=== PATIENT | male | born 1995 | race American Indian/Alaskan Native ===

== ENCOUNTER 2016-08-23 23:46 | Emergency (ER) | payer MEDICAID ==
[2016-08-24 00:11] VITALS: BP 113/76
== END 2016-08-24 04:25 | disposition left against medical advice (07) ==
LOC: ED 23:46
DX: H92.02 Otalgia, left ear (principal); Z53.21 Procedure and treatment not carried out due to patient leaving prior to being seen by health care provider

== ENCOUNTER 2016-08-24 06:55 | Emergency (ER) | payer MEDICAID ==
[2016-08-24 07:37] VITALS: BP 127/78
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
== END 2016-08-24 10:10 | disposition home or self-care (01) ==
LOC: ED 06:55
DX: H92.02 Otalgia, left ear (principal)
CPT/HCPCS: 99283

== ENCOUNTER 2018-02-05 18:37 | Emergency (ER) | payer MEDICAID, OTHER ==
[2018-02-05 19:24] LABS: Hematocrit 44.5 % (35.5-45.6); Mean Corpuscular HGB Conc 34 % (32-34); Mean Corpuscular Hemoglobin 28 pg (28-32); Mean Corpuscular Volume 84 fl (84-94); Platelet Count 218 K/mm3 (140-440); Red Cell Distribution Width 14.3 % (13.2-15.2)
[2018-02-05 19:36] LABS: BUN/Creatinine Ratio 13; Blood Urea Nitrogen 14 mg/dL (9-20); Calcium 9.3 mg/dL (8.4-10.2); Hemolysis Index 6
[2018-02-05 19:56] LABS: Bilirubin,Urine NEG (Negative); Blood,Urine NEG (Negative); Color,Urine Yellow (Yellow); Mucus,Urine FEW /HPF; Protein,Urine <15 mg/dL mg/dL (Negative); Urobilinogen,Urine < 2.0 mg/dL (<2.0); WBC,Urine < 1.0 /HPF (0.0-6.0)
[2018-02-05 19:57] LABS: Amphetamine Screen,Urine PRESUMPTIVE NEGATIVE; Benzodiazepines Screen,Urine PRESUMPTIVE NEGATIVE; Cannabinoid Screen,Urine PRESUMPTIVE NEGATIVE; Cocaine Screen,Urine PRESUMPTIVE NEGATIVE; Methadone Screen,Urine PRESUMPTIVE NEGATIVE; Opiate Screen,Urine PRESUMPTIVE NEGATIVE
[2018-02-05] MEDS ORDERED: KEPPRA PO ONE (20:24)
--- NOTE | 2018-02-05 20:41 | Emergency Department Report ---
HPI - General Chief Complaint: Seizure Time Seen by Provider: 02/05/18 20:17 - HPI HPI: This is a 23-year-old -[place] male who presents to the emergency department with a complaint of a possible seizure. The patient had some witnessed convulsions with his eyes rolling back in his head that was seen by his girlfriend at about 4:40 PM. He started talking but his voice was slurred at that time. They say his eyes were dilated and he was staring off in some type of a stupor for about 15 minutes. He was brought in by the family for evaluation [facility] he said he had a significant headache but that has since resolved completely. He has a history of one previous seizure that occurred as a child and he also has a history of some type of a significant brain injury as a child as well. He denies any tobacco or any illicit drug use or abuse. ED Past Medical Hx - Past Medical History Hx Seizures: Yes (x1 young child) Additional medical history: CONCUSSION-21yr old - Social History Smoking Status: Never Smoker Substance Use Type: None - Medications Home Medications: Home Medications Medication Instructions Recorded Confirmed Last Taken Type levETIRAcetam [Keppra] 500 mg PO BID #60 tablet 02/05/18 Unknown Rx ED Review of Systems ROS: Stated complaint: HEADACHE/POSSIBLE SEIZURE Other details as noted in HPI Comment: All other systems reviewed and negative Constitutional: denies: chills, fever Eyes: denies: eye pain, eye discharge, vision change ENT: denies: ear pain, throat pain Respiratory: denies: cough, shortness of breath, wheezing Cardiovascular: denies: chest pain, palpitations Gastrointestinal: denies: abdominal pain, nausea, diarrhea Genitourinary: denies: urgency, dysuria Musculoskeletal: denies: back pain, joint swelling, arthralgia Skin: denies: rash, lesions Neurological: headache, other (seizure) Physical Exam - Physical Exam Vital Signs: Vital Signs 02/05/18 18:52 Temperature 98.5 F Pulse Rate 85 Respiratory 18 Rate Blood Pressure 142/73 O2 Sat by Pulse 98 Oximetry Physical Exam: GENERAL: Well nourished. Well developed. HENT: Normocephalic. Atraumatic. Patient has moist mucous membranes. EYES: Extraocular motions are intact. Pupils are equal and reactive bilaterally. Mild fatigable horizontal nystagmus. NECK: Supple. Trachea is midline. CHEST/LUNGS: Clear to auscultation. There is no respiratory distress noted. HEART/CARDIOVASCULAR: Regular. There is moderate tachycardia. There is no murmur. ABDOMEN: Abdomen is soft, nontender. Patient has normal bowel sounds. There is no abdominal distention. SKIN: Skin is warm and dry. NEURO: Patient is awake, alert and oriented. The patient is cooperative. No focal, motor or sensory deficits. Cranial nerves II through XII grossly intact. No pronator drift. No dysmetria. MUSCULOSKELETAL: There is no tenderness or deformity. No restriction to range of motion. There is no evidence of acute injury. ED Course Vital Signs 02/05/18 18:52 Temperature 98.5 F Pulse Rate 85 Respiratory 18 Rate Blood Pressure 142/73 O2 Sat by Pulse 98 Oximetry ED Medical Decision Making - Lab Data Result diagrams: 02/05/18 19:08 02/05/18 19:08 - EKG Data -: EKG Interpreted by Vt EKG shows normal: sinus rhythm, axis, intervals, QRS complexes, ST-T waves Rate: bradycardia (59 bpm) - EKG Data When compared to previous EKG there are: previous EKG unavailable Interpretation: other - Medical Decision Making This patient presents after having a seizure that was witnessed prior to presentation. There description does sound very consistent with a seizure. Since being in the emergency department patient is awake, alert and appropriate. No focal, motor or sensory deficits and his cranial nerves are intact. EKG is normal without ST elevation MD, ischemia or dysrhythmia. Labs have been mostly unremarkable as well and do not show any etiology of symptoms. I decided to start the patient on antiepileptic medication secondary to his history of a previous alleged moderate to severe head injury. However the patient has been given a referral for neurology and instructed to follow-up in the next few days so he can have further evaluation of this seizure-like activity and whether or not to continue the antiepileptic medications. I discussed the labs, EKG results and outpatient follow-up plan with both patient and his family and they understand and agree. All questions have been answered. - Differential Diagnosis epilepsy, dysrhythmia, hypoglycemia, electrolyte abnormalities Critical Care Time: No Critical care attestation.: If time is entered above; I have spent that time in minutes in the direct care of this critically ill patient, excluding procedure time. ED Disposition Clinical Impression: Seizure Disposition: DC-01 TO HOME OR SELFCARE Is pt being admited?: No Condition: Stable Instructions: New-Onset Seizure in Adults (ED) Additional Instructions: Please follow up with a primary care physician and a neurologist. I'm giving him a referral for a local neurologist, Dr. Ham and, to follow up regarding her seizure-like activity. I'm starting you on a antiseizure medication called Keppra. Return to the emergency department with any recurrent seizures, worsening of your symptoms, or with any acute distress. Prescriptions: levETIRAcetam [Keppra] 500 mg PO BID #60 tablet Referrals: PRIMARY CARE, [Primary Care Provider] - 2-3 Days BLAIRE SUTHERLAND MD [Staff Physician] - 2-3 Days Time of Disposition: 21:35
[2018-02-05 22:07] VITALS: BP 137/78
== END 2018-02-05 22:06 | disposition home or self-care (01) ==
LOC: ED 18:37
DX: R56.9 Unspecified convulsions (principal); R47.81 Slurred speech
CPT/HCPCS: 36415; 80048; 80307; 81001; 85027; 93005; 93010

== ENCOUNTER 2019-12-31 05:57 | Emergency (ER) | payer BC ==
[2019-12-31 06:30] VITALS: BP 130/79
--- NOTE | 2019-12-31 08:23 | Emergency Department Report ---
ED General Adult HPI - General Chief complaint: Extremity Problem,Nontraumatic Stated complaint: RT ARM PAIN/NOT ABLE TO BEND Time Seen by Provider: 12/31/19 08:22 Source: patient Mode of arrival: Ambulatory Limitations: No Limitations - History of Present Illness Initial comments: 24-year-old -[place] male patient presents with complaints of right arm pain and swelling with decreased range of motion x yesterday. Patient states his symptoms began shortly after donating plasma from the right arm. He rates his pain as a 8/10 in severity and states it worsens with trying to extend the arm. He denies any fever/chills/sweats or past medical history. Patient also denies any chest pain, shortness of breath, cough, history of DVT/PE, recent long travel, IV drug use, or numbness/tingling/weakness in his arm or hand. -: Sudden Consistency: constant Worsens with: movement - Related Data Previous Rx's Medication Instructions Recorded Last Taken Type levETIRAcetam [Keppra] 500 mg PO BID #60 tablet 02/05/18 Unknown Rx Ibuprofen [Motrin 800 MG tab] 800 mg PO Q8HR PRN #21 tablet 12/31/19 Unknown Rx Allergies Allergy/AdvReac Type Severity Reaction Status Date / Time No Known Allergies Allergy Verified 08/24/16 00:07 ED Review of Systems ROS: Stated complaint: RT ARM PAIN/NOT ABLE TO BEND Other details as noted in HPI Constitutional: denies: chills, diaphoresis, fever, malaise, weakness Respiratory: denies: cough, SOB with exertion Cardiovascular: denies: chest pain Skin: denies: rash, lesions, change in color Neurological: denies: numbness, paresthesias Hematological/Lymphatic: denies: easy bleeding, easy bruising, swollen glands ED Past Medical Hx - Past Medical History Hx Seizures: Yes (x1 young child) Additional medical history: CONCUSSION-?13/14 yrs old - Surgical History Past Surgical History?: No - Social History Smoking Status: Never Smoker Substance Use Type: None - Medications Home Medications: Home Medications Medication Instructions Recorded Confirmed Last Taken Type levETIRAcetam [Keppra] 500 mg PO BID #60 tablet 02/05/18 Unknown Rx Ibuprofen [Motrin 800 MG tab] 800 mg PO Q8HR PRN #21 tablet 12/31/19 Unknown Rx ED Physical Exam - General Limitations: No Limitations General appearance: alert, in no apparent distress - Head Head exam: Present: atraumatic, normocephalic - Eye Eye exam: Present: normal appearance. Absent: scleral icterus - ENT ENT exam: Present: mucous membranes moist - Respiratory Respiratory exam: Present: normal lung sounds bilaterally. Absent: respiratory distress - Cardiovascular Cardiovascular Exam: Present: regular rate, normal rhythm. Absent: systolic murmur, diastolic murmur, rubs, gallop - Expanded Upper Extremity Exam Right Forearm Wrist exam: Present: full ROM (Decreased extension secondary to pain), tenderness (Tenderness noted over the proximal anterior portion of the right forearm), swelling (Mild swelling without erythema or skin changes noted), other (Normal radial pulse noted, normal sensation and range of motion of the wrist and hand noted). Absent: deformity, erythema - Neurological Exam Neurological exam: Present: alert, oriented X3 - Psychiatric Psychiatric exam: Present: normal affect, normal mood - Skin Skin exam: Present: warm, dry, intact, normal color. Absent: rash ED Course Vital Signs 12/31/19 12/31/19 06:00 06:02 Temperature 97.9 F 97.9 F Pulse Rate 72 72 Respiratory 18 18 Rate Blood Pressure 136/79 130/79 O2 Sat by Pulse 98 98 Oximetry ED Medical Decision Making - Lab Data Lab Results 12/31/19 Range/Units 10:38 WBC 5.5 (4.5-11.0) K/mm3 RBC 5.54 H (3.65-5.03) M/mm3 Hgb 15.5 H (11.8-15.2) gm/dl Hct 45.7 H (35.5-45.6) % MCV 83 L (84-94) fl MCH 28 (28-32) pg MCHC 34 (32-34) % RDW 14.7 (13.2-15.2) % Plt Count 261 (140-440) K/mm3 Lymph % (Auto) 46.1 H (13.4-35.0) % [place] % (Auto) 9.6 H (0.0-7.3) % Eos % (Auto) 3.5 (0.0-4.3) % Baso % (Auto) 1.2 (0.0-1.8) % Lymph # 2.6 (1.2-5.4) K/mm3 [place] # 0.5 (0.0-0.8) K/mm3 Eos # 0.2 (0.0-0.4) K/mm3 Baso # 0.1 (0.0-0.1) K/mm3 Seg Neutrophils % 39.6 L (40.0-70.0) % Seg Neutrophils # 2.2 (1.8-7.7) K/mm3 - Radiology Data Radiology results: report reviewed DUPLEX DOPPLER UPPER EXTREMITY VENOUS, RIGHT INDICATION / CLINICAL INFORMATION: swelling/pain after plasma donation. TECHNIQUE: Duplex doppler imaging was performed through the veins of the right upper extremity using venous compression and other maneuvers. COMPARISON: None available. FINDINGS: RIGHT INTERNAL JUGULAR VEIN: Negative. RIGHT SUBCLAVIAN VEIN: Negative. RIGHT AXILLARY VEIN: Negative. RIGHT BRACHIAL VEIN: Negative. RIGHT FOREARM VEINS: Negative. RIGHT BASILIC VEIN (SUPERFICIAL): Negative. ADDITIONAL FINDINGS: None. IMPRESSION: 1. No sonographic evidence for DVT. - Medical Decision Making Patient here with complaints of swelling and pain to right forearm after donating plasma yesterday. On exam, there is mild swelling without erythema or warmth. He is neurovascularly intact in the right arm and hand. Ultrasound was performed and is negative for any DVTs. Do not suspect arterial occlusion. White count is normal on CBC. Patient is afebrile. Symptoms likely due to thrombophlebitis. Recommend warm compresses and NSAIDs and follow-up with PCP. Strict return precautions were discussed in detail with patient verbalized understanding. Critical care attestation.: If time is entered above; I have spent that time in minutes in the direct care of this critically ill patient, excluding procedure time. ED Disposition Clinical Impression: Thrombophlebitis arm Disposition: DC- TO HOME OR SELFCARE Is pt being admited?: No Condition: Stable Instructions: Superficial Thrombophlebitis (ED) Prescriptions: Ibuprofen [Motrin 800 MG tab] 800 mg PO Q8HR PRN #21 tablet PRN Reason: pain Referrals: PRIMARY CARE, [Primary Care Provider] - 3-5 Days
--- NOTE | 2019-12-31 11:21 | Vascular Lab Report ---
DUPLEX DOPPLER UPPER EXTREMITY VENOUS, RIGHT INDICATION / CLINICAL INFORMATION: swelling/pain after plasma donation. TECHNIQUE: Duplex doppler imaging was performed through the veins of the right upper extremity using venous comp ression and other maneuvers. COMPARISON: None available. FINDINGS: RIGHT INTERNAL JUGULAR VEIN: Negative. RIGHT SUBCLAVIAN VEIN: Negative. RIGHT AXILLARY VEIN: Negative. RIGHT BRACHIAL VEIN: Negative. RIGHT FOREARM VEINS: Negative. RIGHT BASILIC VEIN (SUPERFICIAL): Negative. ADDITIONAL FINDINGS: None. IMPRESSION: 1. No sonographic evidence for DVT. Signer Name: Geronimo Maharaj MD Signed: 12/31/2019 11:16 AM Workstation Name: [id number]
[2019-12-31 11:33] LABS: Basophils # (Auto) 0.1 K/mm3 (0.0-0.1); Basophils % (Auto) 1.2 % (0.0-1.8); Eosinophils # (Auto) 0.2 K/mm3 (0.0-0.4); Eosinophils % (Auto) 3.5 % (0.0-4.3); Hematocrit 45.7 % (35.5-45.6); Hemoglobin 15.5 gm/dl (11.8-15.2); Lymphocytes # (Auto) 2.6 K/mm3 (1.2-5.4); Lymphocytes % (Auto) 46.1 % (13.4-35.0); Mean Corpuscular HGB Conc 34 % (32-34); Mean Corpuscular Volume 83 fl (84-94); Monocytes # (Auto) 0.5 K/mm3 (0.0-0.8); Monocytes % (Auto) 9.6 % (0.0-7.3); Platelet Count 261 K/mm3 (140-440); Red Blood Count 5.54 M/mm3 (3.65-5.03); Red Cell Distribution Width 14.7 % (13.2-15.2)
[2019-12-31] MEDS ORDERED: IBUPROFEN 800 MG TAB PO ONE (11:44)
[2019-12-31 11:54] LABS: Alanine Aminotransferase 24 units/L (7-56); Albumin 4.4 g/dL (3.9-5); BUN/Creatinine Ratio 13; Blood Urea Nitrogen 14 mg/dL (9-20); Calcium 9.8 mg/dL (8.4-10.2); Hemolysis Index 10
== END 2019-12-31 11:59 | disposition home or self-care (01) ==
LOC: ED 05:57
DX: I80.8 Phlebitis and thrombophlebitis of other sites (principal)
CPT/HCPCS: 36415; 80053; 85025

== ENCOUNTER 2021-05-27 20:24 | Emergency (ER) | payer SELFPAY ==
[2021-05-27 21:55] VITALS: BP 127/82
[2021-05-27] MEDS ORDERED: LIDOCAINE (1%) 10 MG/1 ML VIAL 20 ML MDV INFILTRATI ONE (22:12)
[2021-05-27] MEDS ORDERED: TETANUS,DIPHTHERIA TOXOID ADULT 0.5 ML INJ IM ONE (22:12)
--- NOTE | 2021-05-27 23:17 | Emergency Department Report ---
ED Extremity Problem HPI - General Chief complaint: Extremity Injury, Lower Stated complaint: TOE NAIL HANGING Time Seen by Provider: 05/27/21 22:07 Source: patient Mode of arrival: Ambulatory Limitations: No Limitations - History of Present Illness Initial comments: Bumped into dog and left great toenail was lifted. Bleeding controlled MD Complaint: extremity pain -: Sudden, hour(s) Location: left History of Same: No Radiation: none Quality: aching Consistency: constant Improves with: nothing - Related Data Previous Rx's Medication Instructions Recorded Last Taken Type levETIRAcetam [Keppra] 500 mg PO BID #60 tablet 02/05/18 Unknown Rx Ibuprofen [Motrin 800 MG tab] 800 mg PO Q8HR PRN #21 tablet 12/31/19 Unknown Rx Allergies Allergy/AdvReac Type Severity Reaction Status Date / Time No Known Allergies Allergy Verified 08/24/16 00:07 ED Review of Systems ROS: Stated complaint: TOE NAIL HANGING Other details as noted in HPI Constitutional: denies: chills, fever Eyes: denies: eye pain, eye discharge, vision change ENT: denies: ear pain, throat pain Respiratory: denies: cough, shortness of breath, wheezing Cardiovascular: denies: chest pain, palpitations Endocrine: no symptoms reported Gastrointestinal: denies: abdominal pain, nausea, diarrhea Genitourinary: denies: urgency, dysuria Musculoskeletal: denies: back pain, joint swelling, arthralgia Skin: denies: rash, lesions Neurological: denies: headache, weakness, paresthesias Psychiatric: denies: anxiety, depression Hematological/Lymphatic: denies: easy bleeding, easy bruising ED Past Medical Hx - Past Medical History Previous Medical History?: Yes Hx Seizures: Yes (x1 young child) Additional medical history: CONCUSSION-?13/14 yrs old - Surgical History Past Surgical History?: No - Social History Smoking Status: Never Smoker Substance Use Type: None - Medications Home Medications: Home Medications Medication Instructions Recorded Confirmed Last Taken Type levETIRAcetam [Keppra] 500 mg PO BID #60 tablet 02/05/18 Unknown Rx Ibuprofen [Motrin 800 MG tab] 800 mg PO Q8HR PRN #21 tablet 12/31/19 Unknown Rx ED Physical Exam - General Limitations: No Limitations General appearance: alert, in no apparent distress - Head Head exam: Present: atraumatic, normocephalic - Eye Eye exam: Present: normal appearance - ENT ENT exam: Present: mucous membranes moist - Neck Neck exam: Present: normal inspection - Respiratory Respiratory exam: Present: normal lung sounds bilaterally. Absent: respiratory distress - Cardiovascular Cardiovascular Exam: Present: regular rate, normal rhythm. Absent: systolic murmur, diastolic murmur, rubs, gallop - GI/Abdominal GI/Abdominal exam: Present: soft, normal bowel sounds - Rectal Rectal exam: Present: deferred - Extremities Exam Extremities exam: Present: normal inspection - Expanded Lower Extremity Exam Left Foot/Toe exam: Present: nail avulsion - Back Exam Back exam: Present: normal inspection - Neurological Exam Neurological exam: Present: alert, oriented X3 - Psychiatric Psychiatric exam: Present: normal affect, normal mood - Skin Skin exam: Present: warm, dry, intact, normal color. Absent: rash ED Course Vital Signs 05/27/21 21:46 Temperature 98.6 F Pulse Rate 79 Respiratory 18 Rate Blood Pressure 127/82 O2 Sat by Pulse 98 Oximetry Critical care attestation.: If time is entered above; I have spent that time in minutes in the direct care of this critically ill patient, excluding procedure time. ED Disposition Clinical Impression: Nail avulsion of toe Disposition: HOME / SELF CARE / HOMELESS Is pt being admited?: No Does the pt Need Aspirin: No Condition: Stable Instructions: Fingernail or Toenail Removal, Adult, Care After
== END 2021-05-28 00:30 | disposition home or self-care (01) ==
LOC: ED 20:24
DX: S91.202A Unspecified open wound of left great toe with damage to nail, initial encounter (principal); X58.XXXA Exposure to other specified factors, initial encounter; Y93.89 Activity, other specified; Y92.89 Other specified places as the place of occurrence of the external cause; Y99.8 Other external cause status
CPT/HCPCS: 90471; 90714; 99282; J3490

== ENCOUNTER 2021-09-22 13:13 | Emergency (ER) | payer SELFPAY ==
--- NOTE | 2021-09-22 14:14 | Emergency Department Report ---
ED N/V/D HPI - General Chief complaint: Nausea/Vomiting/Diarrhea Stated complaint: VOMITING/DIARRHEA Time Seen by Provider: 09/22/21 14:12 Source: patient Mode of arrival: Ambulatory Limitations: No Limitations - History of Present Illness MD complaint: nausea, vomiting, diarrhea -: days(s) (2) Consistency: constant Improves with: none Worsens with: none Associated Symptoms: malaise, nausea/vomiting. denies: myalgias, cough, di aphoresis, loss of appetite - Related Data Previous Rx's Medication Instructions Recorded Last Taken Type levETIRAcetam [Keppra] 500 mg PO BID #60 tablet 02/05/18 Unknown Rx Ibuprofen [Motrin 800 MG tab] 800 mg PO Q8HR PRN #21 tablet 12/31/19 Unknown Rx Ibuprofen [Motrin] 800 mg PO Q8HR PRN #14 tablet 05/27/21 Unknown Rx Hyoscyamine Subl [Levsin Sl 0.125 0.125 mg SL Q4HR PRN #20 tablet 09/22/21 Unknown Rx TAB] Ondansetron [Zofran ODT TAB] 8 mg PO Q8HR #14 tab.rapdis 09/22/21 Unknown Rx Allergies Allergy/AdvReac Type Severity Reaction Status Date / Time No Known Allergies Allergy Verified 08/24/16 00:07 ED Review of Systems ROS: Stated complaint: VOMITING/DIARRHEA Other details as noted in HPI Comment: All other systems reviewed and negative ED Past Medical Hx - Past Medical History Hx Seizures: Yes (x1 young child) Additional medical history: CONCUSSION-?13/14 yrs old - Social History Smoking Status: Never Smoker Substance Use Type: None - Medications Home Medications: Home Medications Medication Instructions Recorded Confirmed Last Taken Type levETIRAcetam [Keppra] 500 mg PO BID #60 tablet 02/05/18 Unknown Rx Ibuprofen [Motrin 800 MG tab] 800 mg PO Q8HR PRN #21 tablet 12/31/19 Unknown Rx Ibuprofen [Motrin] 800 mg PO Q8HR PRN #14 tablet 05/27/21 Unknown Rx Hyoscyamine Subl [Levsin Sl 0.125 0.125 mg SL Q4HR PRN #20 tablet 09/22/21 Unknown Rx TAB] Ondansetron [Zofran ODT TAB] 8 mg PO Q8HR #14 tab.rapdis 09/22/21 Unknown Rx ED Physical Exam - General Limitations: No Limitations General appearance: alert, in no apparent distress - Head Head exam: Present: atraumatic, normocephalic - Eye Eye exam: Present: normal appearance, PERRL, EOMI Pupils: Present: normal accommodation - ENT ENT exam: Present: normal exam, normal orophraynx, mucous membranes moist, TM's normal bilaterally - Neck Neck exam: Present: normal inspection, full ROM - Respiratory Respiratory exam: Present: normal lung sounds bilaterally. Absent: respiratory distress, wheezes, rales - Cardiovascular Cardiovascular Exam: Present: regular rate, normal rhythm. Absent: systolic murmur, diastolic murmur, rubs, gallop - GI/Abdominal GI/Abdominal exam: Present: soft, normal bowel sounds - Rectal Rectal exam: Present: deferred - Extremities Exam Extremities exam: Present: normal inspection - Back Exam Back exam: Present: normal inspection. Absent: CVA tenderness (R), CVA tenderness (L) - Neurological Exam Neurological exam: Present: alert, oriented X3, CN II-XII intact, normal gait - Psychiatric Psychiatric exam: Present: normal affect, normal mood - Skin Skin exam: Present: warm, dry, intact, normal color. Absent: rash ED Course Vital Signs 09/22/21 13:57 Pulse Rate 90 Respiratory 16 Rate Blood Pressure 146/88 [Left] O2 Sat by Pulse 100 Oximetry ED Medical Decision Making - Lab Data Result diagrams: 09/22/21 14:33 09/22/21 14:33 Critical care attestation.: If time is entered above; I have spent that time in minutes in the direct care of this critically ill patient, excluding procedure time. ED Disposition Clinical Impression: Nausea vomiting and diarrhea Disposition: HOME / SELF CARE / HOMELESS Condition: Stable Instructions: Nausea, Adult, Diarrhea, Adult, Viral Gastroenteritis, Adult, Food Choices to Help Relieve Diarrhea, Adult, Salmonella Gastroenteritis, Adult Prescriptions: Hyoscyamine Subl [Levsin Sl 0.125 TAB] 0.125 mg SL Q4HR PRN #20 tablet PRN Reason: Spasms Ondansetron [Zofran ODT TAB] 8 mg PO Q8HR #14 tab.rapdis Referrals: [facility] [Provider Group] - 3-5 Days
[2021-09-22 15:01] LABS: Basophils # (Auto) 0.1 K/mm3 (0.0-0.1); Basophils % (Auto) 0.9 % (0.0-1.8); Eosinophils # (Auto) 0.2 K/mm3 (0.0-0.4); Eosinophils % (Auto) 2.5 % (0.0-4.3); Hematocrit 46.1 % (35.5-45.6); Hemoglobin 15.3 gm/dl (11.8-15.2); Lymphocytes # (Auto) 2.9 K/mm3 (1.2-5.4); Lymphocytes % (Auto) 45.5 % (13.4-35.0); Mean Corpuscular HGB Conc 33 % (32-34); Mean Corpuscular Volume 83 fl (84-94); Monocytes # (Auto) 0.6 K/mm3 (0.0-0.8); Platelet Count 237 K/mm3 (140-440); Red Blood Count 5.59 M/mm3 (3.65-5.03); Red Cell Distribution Width 13.8 % (13.2-15.2)
[2021-09-22 15:25] LABS: Alanine Aminotransferase 27 units/L (7-56); Albumin 4.5 g/dL (3.9-5); BUN/Creatinine Ratio 14; Blood Urea Nitrogen 17 mg/dL (9-20); Calcium 9.9 mg/dL (8.4-10.2); Hemolysis Index 22
[2021-09-22 17:03] VITALS: BP 129/85
== END 2021-09-22 16:00 | disposition home or self-care (01) ==
LOC: ED 13:13
DX: R11.2 Nausea with vomiting, unspecified (principal); R19.7 Diarrhea, unspecified
CPT/HCPCS: 36415; 80053; 83690; 85025; 99283